=== PATIENT | male | born 1950 | race Caucasian/White ===

== ENCOUNTER 2020-01-26 16:20 | Inpatient (IN) | payer MEDICARE, OTHER ==
[~2020-01-26] VITALS: Ht 177.8 cm; Wt 118.3 kg
[~2020-01-26 16:20] MED LIST: ATORVASTATIN CA40 MG PO; BRILINTA90 MG PO; CARVEDILOL6.25 MG PO; DYAZIDE 37.5-21 EACH; LO-DOSE ASPIRIN81 M1 PO; MECLIZINE 25 MG25 M1 PO; NITROGLYCERIN0.4 MG SUBLING; TYLENOL325 MG PO; VALIUM5 MG PO
[2020-01-26 16:23] VITALS: BP 131/86
[2020-01-26 17:03] LABS: ABSOLUTE EOSINOPHILS 0.2 thou/uL (0.0-0.7); ABSOLUTE LYMPHOCYTES 1.5 thou/uL (0.8-5.3); ABSOLUTE MONOCYTES 0.8 thou/uL (0.0-1.2); ABSOLUTE NEUTROPHILS 4.4 thou/uL (1.6-8.1); BASOPHILS 0.7 %; EOSINOPHILS 3.6 %; HEMATOCRIT 42.3 % (42.0-52.0); HEMOGLOBIN 14.3 gm/dL (14.0-18.0); LYMPHOCYTES 21.1 %; MCHC 33.7 g/dL (28.0-37.0); MONOCYTES 11.1 %; MPV 7.7 fl. (7.2-11.1); NUCLEATED RBCS 0 /100WBC; PLATELET COUNT* 259 thou/uL (150-400); POLYS 63.5 %; RBC 4.92 mil/uL (4.50-6.00); RDW-CV 15.1 % (10.5-14.5); WBC 6.9 thou/uL (4.0-11.0)
[2020-01-26 17:13] LABS: APTT 25.1 Seconds (25.0-31.3); CALCIUM 9.2 mg/dL (8.5-10.1); CREATININE 1.1 mg/dL (0.6-1.3); POTASSIUM 4.5 mmol/L (3.5-5.1); PROTIME 10.4 Seconds (9.20-11.50)
[2020-01-26 17:25] LABS: ALBUMIN 3.6 g/dL (3.4-5.0); CK-MB MASS 2.2 ng/mL (<0.5-3.6); TOTAL BILIRUBIN 0.6 mg/dL (<0.1-1.0); TOTAL PROTEIN 7.4 g/dL (6.4-8.2)
[2020-01-26 19:49] VITALS: BP 126/65
[2020-01-26 22:30] VITALS: BP 131/62
[2020-01-26 23:44] VITALS: BP 110/56
[2020-01-27 04:00] VITALS: BP 150/90
[2020-01-27 07:59] VITALS: BP 142/75
[2020-01-27 10:07] LABS: CHOLESTEROL 173 mg/dL (<200); HDL CHOLESTEROL 39 mg/dL (>40); LDL CHOLESTEROL 85 mg/dL (<100); SERUM ASSESSMENT Clear; TC:HDL 4.4 Ratio (Not establshd); TRIGLYCERIDE 247 mg/dL (<150); VLDL 49 mg/dL (<40)
--- NOTE | 2020-01-27 17:30 | 2DMMODE ---
[place] [address] 2 D/M-MODE ECHOCARDIOGRAM Name: JOE ROBLERO Room: [address] IN [facility].#: [id number] Admission: 01/26/20 Attend Phys: Linda Montanez Discharge: Date of : 46 Date of Service: 01/27/20 1730 Report #: [id number] THIS REPORT FOR: cc: Rosy De Jesus MD, Elizabeth MD Holkins,Manoj Virk MD [facility] ~ APPROVED REPORT Study performed: 01/27/2020 10:00:48 EXAM: Comprehensive 2D, Doppler, and color-flow Echocardiogram Patient Location: In-Patient Room #: 224 Status: routine BSA: 2.29 HR: 70 bpm BP: 142/75 mmHg Rhythm: NSR Other Information Study Quality: Good Indications Chest Pain 2D Dimensions IVSd: 12.25 (7-11mm) LVOT Diam: 21.56 (18-24mm) LVDd: 42.83 mm PWd: 12.09 (7-11mm) LVDs: 22.98 (25-40mm) Aortic Root: 36.64 mm Volumes Left Atrial Volume (Systole) LA ESV Index: 31.20 mL/m2 Aortic Valve AoV Peak Kirby.: 1.25 m/s AO Peak Gr.: 6.28 mmHg LVOT Max P.22 mmHg AO Mean Gr.: 3.38 mmHg LVOT Mean P.39 mmHg LVOT Max V: 1.25 m/s AO V2 VTI: 26.87 cm LVOT Mean V: 0.69 m/s JAMARCUS (VTI): 3.90 cm2 LVOT V1 VTI: 28.67 [place] [address] 2 D/M-MODE ECHOCARDIOGRAM Name: JOE ROBLERO Room: [address] IN .R.#: [id number] Admission: 01/26/20 Attend Phys: Linda Montanez Discharge: Date of : 46 Date of Service: 01/27/20 1730 Report #: [id number] Mitral Valve E/A Ratio: 0.84 MV Decel. Time: 246.56 ms MV E Max Kirby.: 0.92 m/s MV PHT: 71.50 ms MVA (PHT): 3.08 cm2 TDI E/Lateral E': 10.22 E/Medial E': 10.22 Medial E' Kirby.: 0.09 m/s Lateral E' Kirby.: 0.09 m/s Pulmonary Valve PV Peak Kirby.: 0.88 m/s PV Peak Gr.: 3.10 mmHg Left Ventricle The left ventricle is normal size. There is normal LV segmental wall motion. There is normal left ventricular wall thickness. Left ventricular systolic function is normal. The left ventricular ejection fraction is within the normal range. LVEF is 55-60%. Grade I - abnormal relaxation pattern. Right Ventricle The right ventricle is normal size. The right ventricular systolic function is normal. Atria The left atrium size is normal. The right atrium size is normal. Aortic Valve The aortic valve is normal in structure. No aortic regurgitation is present. There is no aortic valvular stenosis. Mitral Valve There is mitral annular calcification. There is no mitral valve regurgitation noted. No evidence of mitral valve stenosis. Tricuspid Valve The tricuspid valve is normal in structure. There is no tricuspid valve regurgitation noted. Pulmonic Valve The pulmonary valve is normal in structure. Trace [place] [address] 2 D/M-MODE ECHOCARDIOGRAM Name: JOE ROBLERO Room: [address] IN [facility]#: [id number] Admission: 01/26/20 Attend Phys: Linda Montanez Discharge: Date of : 46 Date of Service: 01/27/20 1730 Report #: [id number] Great Vessels The aortic root is normal in size. IVC is normal in size and collapses >50% with inspiration. Pericardium There is no pericardial effusion. <Conclusion> The left ventricle is normal size. There is normal left ventricular wall thickness. Left ventricular systolic function is normal. The left ventricular ejection fraction is within the normal range. LVEF is 55-60%. Grade I - abnormal relaxation pattern. The right ventricle is normal size. The left atrium size is normal. The aortic valve is normal in structure. There is mitral annular calcification. There is no mitral valve regurgitation noted. No evidence of mitral valve stenosis. The tricuspid valve is normal in structure. IVC is normal in size and collapses >50% with inspiration. There is no pericardial effusion. There is normal LV segmental wall motion. <ELECTRONICALLY SIGNED> By: Manoj Cruz MD, FACC 01/27/20 1730 [id number] Manoj Cruz MD, FACC /INF
[2020-01-27 17:31] VITALS: BP 117/72
--- NOTE | 2020-01-27 18:20 | EKG ---
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 01/27/20 1820 1624 1624 Diogo Kraus MD, [facility] /EPI
[2020-01-27 20:00] VITALS: BP 133/79
[2020-01-28] VITALS: BP 130/59
[2020-01-28 04:00] VITALS: BP 124/62
[2020-01-28 08:00] VITALS: BP 98/66
[2020-01-28 14:49] VITALS: BP 98/66
--- NOTE | 2020-01-29 09:41 | CARDNUC ---
[place] [address] CARDIAC NUCLEAR IMAGING REPORT Name: JOE ROBLERO Room: [address] IN [facility]#: [id number] Admission: 01/26/20 Attend Phys: Linda Montanez Discharge: 01/28/20 Date of : 46 Date of Service: 01/29/20 0941 Report #: [id number] THIS REPORT FOR: cc: Rosy De Jesus MD, Elizabeth MD Park, Jin S. MD ~ APPROVED REPORT Study performed: 01/26/2020 18:29:00 Indication: Chest pain increased with inhalation, lightheadedness, nausea and numbness in left hand. Patient Location: In-Patient Room #: 224 Stress Tech: Apurva Trejo Stress Nurse: Lidia Mac RN NM Tech:RIVER Curry Ht: 5 ft 10 in Wt: 250 lbs BSA: 2.29 m2 BMI: 35.86 Medical History Medical History: Angina, CAD s/p [place], CAD s/p stent, HTN, Hyperlipidemia, Lightheadedness, Nausea, Numbness in left hand, past smoker, Obesity. Medications: Carvedilol, ASA 81 Mg, Atorvastatin, NTG, (Brilinta d/c'd) Allergies: No known drug allergies Cardiac Risk Factors: Age, FHX of CAD, HTN, Hyperlipidemia, Obesity, CAD s/p [place]/PCI, past smoker. Previous Cardiac Procedures: Myocardial infarction, PCI. Pretest Chest Pain Characteristics: No chest pain Exercise History: Physically active Physical Disabilities: None noted. Meds Held (24 hrs): Carvedilol, NTG. Resting Data Rest SPECT myocardial perfusion imaging was performed in supine position 45 minutes following the intravenous injection of 33.8 mCi of Tc-99m Sestamibi. Time of rest injection: 829 Date: 01/28/2020 Administration Route: IV Administration Site: [place] [address] CARDIAC NUCLEAR IMAGING REPORT Name: JOE ROBLERO Room: [address]#: [id number] Admission: 01/26/20 Attend Phys: Linda Montanez Discharge: 01/28/20 Date of : 46 Date of Service: 01/29/20 0941 Report #: [id number] Exercise Stress At peak stress, the patient was injected intravenously with 29.0mCi of Tc-99m Sestamibi. Time of stress injection: 1209 Date: 01/27/2020 Administration Route: IV Administration Site: Left AC Gated Stress SPECT was performed 30 minutes after stress injection. The images were gated to evaluate regional wall motion and calculate left ventricular ejection fraction. Prone imaging was performed. Stress Test Details Stress Test: Exercise stress testing was performed using a Chuckie protocol. HR Max Heart Rate (APMHR): 149 bpm Resting HR: 78 bpm Target HR (85% APMHR): 126 bpm Max HR Achieved: 132 bpm % of APMHR: 88 Recovery HR: 86 bpm BP Resting BP: 116/65 mmHg Max BP: 219/74 mmHg Recovery BP: 136/86 mmHg ECG Resting ECG: Sinus Rhythm, nonspecific ST-T abnormalities Stress ECG: Sinus Rhythm, nonspecific ST-T abnormalities ST Change: Non-ischemic Clinical Reason for Termination: Completed protocol, Maximal effort, Patient Request. Stress Symptoms: Dyspnea, Fatigue, Weakness. Exercise duration: 5 min 34 sec Exercise capacity: 7.05 METs Overall Exercise Capacity for Age: Borderline Reduced to Normal. Nurse Comments A 69 year old male inpatient presented for a Treadmill Nuclear Stress Test r/t chest pain, lightheadedness, nausea. Treadmill tolerated to stage 2, target HR obtained. Recovery unremarkable. Patient was stable and stated he [place] [address] CARDIAC NUCLEAR IMAGING REPORT Name: JOE ROBLERO Room: [address]#: [id number] Admission: 01/26/20 Attend Phys: Linda Montanez Discharge: 01/28/20 Date of : 46 Date of Service: 01/29/20 0941 Report #: [id number] Study Quality Study: Good Study Data Post stress, the left ventricular ejection was 76%.. SSS: 0 SRS: 0 SDS: 0 TID = 0.85. Perfusion Normal left ventricular perfusion. Normal perfusion on both the stress and rest images. Wall Motion Normal left ventricular wall motion. Nuclear Conclusion ECG Findings: negative for ischemia Clinical Findings: negative for ischemia Nuclear Findings: negative for ischemia Exercise Capacity: below average Left Ventricular Function: normal Risk Study: low This study is of low probability for inducible ischemia or prior infarct. Normal global and segmental LV systolic function. <ELECTRONICALLY SIGNED> By: Carlin Perez MD 01/29/20940 0 0 Carlin Perez MD /INF
== END 2020-01-28 15:15 | disposition home or self-care (01) | DRG 206 ==
LOC: M.ERS 16:20 → M.TBA-ER 17:20 → M.2W 17:20
PROVIDERS: Family Medicine; Registered Nurse; ADMIT Internal Medicine; ATTEND Internal Medicine
DX: M94.0 Chondrocostal junction syndrome [Tietze] (principal); I25.119 Atherosclerotic heart disease of native coronary artery with unspecified angina pectoris; Z20.828 Contact with and (suspected) exposure to other viral communicable diseases; E78.5 Hyperlipidemia, unspecified; I10 Essential (primary) hypertension; I25.2 Old myocardial infarction; Z95.5 Presence of coronary angioplasty implant and graft; Z82.49 Family history of ischemic heart disease and other diseases of the circulatory system; Z79.82 Long term (current) use of aspirin; Z79.899 Other long term (current) drug therapy